=== PATIENT | female | born 1955 | race African-American/Black ===

== ENCOUNTER 2025-05-25 07:13 | Outpatient (CLI) | payer OTHER | END 2025-05-25 07:14 | disposition home or self-care (01) | LOC: CSHULT 07:13 | PROVIDERS: ATTEND Urology | DX: N28.1 Cyst of kidney, acquired (principal) | CPT/HCPCS: 76770 ==

== ENCOUNTER 2025-07-18 14:02 | Outpatient (CLI) | payer OTHER ==
[2025-07-18 15:25] LABS: Hematocrit 40.7 % (34.9-44.5); Hemoglobin 13.3 g/dL (12.0-15.5)
[2025-07-18 15:41] LABS: Anion Gap 14 mmol/L (10-20); BUN (Urea Nitrogen) 20 mg/dL (9.8-20.1); Calc. Creatinine Clearance 0 mL/min (70-130); Calcium 9.7 mg/dL (7.8-10.44); Carbon Dioxide 26 mmol/L (23-31); Chloride 106 mmol/L (98-107); Glucose 87 mg/dL (80-115); Potassium 3.6 mmol/L (3.5-5.1); Sodium 142 mmol/L (136-145)
== END 2025-07-18 14:03 | disposition home or self-care (01) ==
LOC: CSHLAB 14:02
PROVIDERS: ATTEND Specialist
DX: Z01.812 Encounter for preprocedural laboratory examination (principal); E07.9 Disorder of thyroid, unspecified; E05.90 Thyrotoxicosis, unspecified without thyrotoxic crisis or storm
CPT/HCPCS: 80048; 85014; 85018